=== PATIENT | female | born 1985 | race Caucasian/White ===

== ENCOUNTER → 2019-05-26 | Outpatient (CLI) | payer OTHER ==
[~2019-05-26] MED LIST: ABILIFY PO; ALBIPROI INH; ALBU90OI INH; ALPR.5; ALPR.5 PO; ALPR1; ALPR1 PO; ARIP10 PO; ATOM18 PO; AZIT250 PO; BENZ100A PO; CIPR500 PO; CLON.5; CLON.5 PO; CLON1; CLON1 PO; CLON2 PO; CYCL10 PO; CYMBALTA PO; DESV50 PO; DIPH50 PO; DOXY100 PO; DULO30 PO; ERYT250 PO; ESCI10; ESCI10 PO; ESCI20; ESCI20 PO; FLUO20 PO; GABA100; GABA300 PO; HALO5; HYDACE5 PO; HYDPAM25 PO; IBUP600 PO; KETO10 PO; KLONOPIN; LORA.5 PO; METPHE20 PO; METR500 PO; NAPR500 PO; Norco 5-325 Ta1 EACH PO; OMEP20ER PO; ONDA4 PO; OXYACE5T PO; OXYACE7.5T PO; Omeprazole20 M1 PO; PAIN MED; PARO20 PO; PHENA200 PO; PRAZ1 PO; PRED20 PO; PRISTIQUE; PROM25 PO; PROM25S PR; RXOXYACE PO; RXPROM25 PO; RXTRAM50 PO; SULTRIDS PO; TOPAMAX; TOPI100 PO; TOPI25; TOPI25 PO; TRAM50 PO; TRAZ50 PO; [UNRECOGNIZED DRUG - REMARK]; [UNRECOGNIZED DRUG - REMARK] PO
[2019-05-28 12:07] LABS: HPV 16 Negative (Negative); HPV 18 Negative (Negative); HPV OTHER HR TYPES Negative (Negative)
== END | disposition home or self-care (01) ==
LOC: LAB SHORT 12:04 → LAB SRC 12:04
PROVIDERS: Nurse Practitioner Family
DX: Z12.4 Encounter for screening for malignant neoplasm of cervix (principal)
CPT/HCPCS: 87624; G0123

== ENCOUNTER → 2020-09-13 | Outpatient (CLI) | payer SELFPAY ==
[2020-09-14 10:30] LABS: Candida species (DNA Probe) Negative (NEGATIVE); G. vaginalis (DNA Probe) Negative (NEGATIVE); T. vaginalis (DNA Probe) Negative (NEGATIVE)
[2020-09-16 03:10] LABS: CHLAMYDIA TRACHOMATIS, NAA Negative (Negative)
== END ==
LOC: LAB SHORT 16:32 → LAB 16:32
PROVIDERS: Chiropractor
DX: R10.2 Pelvic and perineal pain (principal)
CPT/HCPCS: 87070; 87205; 87480; 87491; 87510; 87591; 87660

== ENCOUNTER → 2020-10-02 | Outpatient (CLI) | payer SELFPAY ==
[2020-10-03 15:10] LABS: HPV 16 Negative (Negative); HPV 18 Negative (Negative); HPV OTHER HR TYPES Negative (Negative)
== END | disposition home or self-care (01) ==
LOC: LAB 18:11 → LAB SHORT 18:11
PROVIDERS: Family Medicine
DX: Z12.4 Encounter for screening for malignant neoplasm of cervix (principal)
CPT/HCPCS: 87624; G0123

== ENCOUNTER 2021-11-19 09:45 | Emergency (ER) | payer OTHER ==
[~2021-11-19] VITALS: Ht 165.1 cm; Wt 63.5 kg
== END 2021-11-19 10:56 | disposition home or self-care (01) ==
LOC: ER 09:45
DX: S43.81XA Sprain of other specified parts of right shoulder girdle, initial encounter (principal); S83.91XA Sprain of unspecified site of right knee, initial encounter; S63.602A Unspecified sprain of left thumb, initial encounter; W03.XXXA Other fall on same level due to collision with another person, initial encounter; Y93.F9 Activity, other caregiving; F17.200 Nicotine dependence, unspecified, uncomplicated; Z88.0 Allergy status to penicillin; Z88.1 Allergy status to other antibiotic agents; Z88.8 Allergy status to other drugs, medicaments and biological substances; Z79.899 Other long term (current) drug therapy
CPT/HCPCS: 99283

== ENCOUNTER 2023-02-05 11:25 | Emergency (ER) | payer OTHER ==
[~2023-02-05] VITALS: Ht 165.1 cm; Wt 56.7 kg
[2023-02-05] MEDS ORDERED: BUPROPION XL150 M1 PO (11:47)
[2023-02-05] MEDS ORDERED: VENL75ER PO (11:47)
[2023-02-05] MEDS ORDERED: Cetirizine HCl10 MG PO (11:48)
[2023-02-05] MEDS ORDERED: BUSPIRONE HCL10 M6 PO (11:48)
[2023-02-05] MEDS ORDERED: LAMOTRIGINE25 M4 PO (11:48)
[2023-02-05 11:53] LABS: Source, Urine Voided
[2023-02-05 12:12] LABS: Appearance, Urine Clear (Clear); Bilirubin, Urine Neg (Neg); Blood, Urine Neg (Neg); Color, Urine Yellow (P-Yellow); Glucose Qualitative, Urine Neg (Neg); Ketones, Urine Neg (Neg); Leukocyte Esterase, Urine Neg (Neg); Nitrite, Urine Neg (Neg); Protein, Urine Neg (Neg); Urobilinogen, Urine NORM (Normal)
[2023-02-05 12:21] LABS: BASOPHILS ABSOLUTE AUTO 0.06 K/mm3 (0.00-0.23); BASOPHILS PERCENT AUTO 1 % (0-2); EOSINOPHILS ABSOLUTE AUTO 0.12 K/mm3 (0.00-0.68); EOSINOPHILS PERCENT AUTO 2 % (0-6); Hematocrit 41.8 % (33.0-51.0); Hemoglobin 14.2 g/dL (11.5-16.0); IMMATURE GRAN ABSOLUTE AUTO 0.01 K/mm3 (0.00-0.10); IMMATURE GRAN PERCENT AUTO 0 % (0-1); LYMPHOCYTES ABSOLUTE AUTO 1.96 K/mm3 (0.84-5.20); LYMPHOCYTES PERCENT AUTO 32 % (21-46); MONOCYTES ABSOLUTE AUTO 0.41 K/mm3 (0.16-1.47); MONOCYTES PERCENT AUTO 7 % (4-13); Mean Corpuscular Volume 91 fL (80-100); Mean Platelet Volume 9.2 fL (9.1-12.4); NEUTROPHILS ABSOLUTE AUTO 3.63 K/mm3 (1.96-9.15); NEUTROPHILS PERCENT AUTO 59 % (41-73); Platelet Count 345 K/mm3 (150-400); RDW Coefficient Variation 12.4 % (11.7-14.2); RDW Standard Deviation 41.6 fL (35.1-46.3); Red Blood Cell Count 4.58 M/mm3 (3.80-5.20); White Blood Cell Count 6.19 K/mm3 (4.00-11.30)
[2023-02-05 12:42] LABS: Albumin, Blood 3.9 g/dL (3.4-5.0); Bilirubin, Total 0.2 mg/dL (0.1-1.0); Bun/Creatinine Ratio 14.9 (12.0-20.0); Calcium, Blood 8.8 mg/dL (8.5-10.1); Creatinine, Blood 0.74 mg/dL (0.40-1.00); Globulin, Blood 3.8 g/dL (2.2-4.0); Potassium, Blood 4.1 mmol/L (3.5-5.5); Total Protein, Blood 7.7 g/dL (6.4-8.2)
[2023-02-05 14:00] VITALS: BP 101/62
== END 2023-02-05 14:04 | disposition home or self-care (01) ==
LOC: ER 11:25
PROVIDERS: Student in an Organized Health Care Education/Training Program
DX: K80.70 Calculus of gallbladder and bile duct without cholecystitis without obstruction (principal); G40.909 Epilepsy, unspecified, not intractable, without status epilepticus; F17.200 Nicotine dependence, unspecified, uncomplicated; Z88.0 Allergy status to penicillin; Z88.8 Allergy status to other drugs, medicaments and biological substances; Z88.1 Allergy status to other antibiotic agents; Z79.899 Other long term (current) drug therapy
CPT/HCPCS: 76705; 80053; 81003; 81025; 83690; 85025; 96374; 96375; 99284-25; J2405; J3010

== ENCOUNTER 2024-01-25 14:32 | Observation (INO) | payer OTHER ==
[~2024-01-25] VITALS: Ht 165.1 cm; Wt 55.6 kg
[~2024-01-25 14:32] MED LIST changes: -ONDA4ODT MM
[2024-01-25 15:28] LABS: Source, Urine Clean Catch
[2024-01-25 15:32] LABS: Bilirubin, Urine Neg (Neg); Blood, Urine 1+ (Neg); Glucose Qualitative, Urine Neg (Neg); Ketones, Urine Neg (Neg); Leukocyte Esterase, Urine Neg (Neg); Nitrite, Urine Neg (Neg); Protein, Urine Neg (Neg); Specific Gravity, Urine 1.025 (1.003-1.022); Urobilinogen, Urine NORM (Normal)
[2024-01-25 15:38] LABS: Appearance, Urine Clear (Clear); Color, Urine Pale Yellow (P-Yellow)
[2024-01-25 15:39] LABS: Bacteria Few /hpf; Squamous Epithelial Cells Few /hpf (Few); White Blood Cells, Urine 0-2 /hpf (0-5)
[2024-01-25] MEDS ORDERED: Ketorolac Tromethamine 30mg Vial IV ONE (15:45)
[2024-01-25 16:07] LABS: BASOPHILS ABSOLUTE AUTO 0.02 K/mm3 (0.00-0.23); BASOPHILS PERCENT AUTO 0 % (0-2); EOSINOPHILS ABSOLUTE AUTO 0.06 K/mm3 (0.00-0.68); EOSINOPHILS PERCENT AUTO 0 % (0-6); Hematocrit 37.7 % (33.0-51.0); Hemoglobin 12.8 g/dL (11.5-16.0); IMMATURE GRAN ABSOLUTE AUTO 0.05 K/mm3 (0.00-0.10); IMMATURE GRAN PERCENT AUTO 0 % (0-1); LYMPHOCYTES ABSOLUTE AUTO 0.74 K/mm3 (0.84-5.20); LYMPHOCYTES PERCENT AUTO 5 % (21-46); MONOCYTES ABSOLUTE AUTO 0.74 K/mm3 (0.16-1.47); MONOCYTES PERCENT AUTO 5 % (4-13); Mean Corpuscular HGB 31.4 pg (26.0-34.0); Mean Corpuscular Volume 92 fL (80-100); Mean Platelet Volume 9.2 fL (9.1-12.4); NEUTROPHILS ABSOLUTE AUTO 12.51 K/mm3 (1.96-9.15); NEUTROPHILS PERCENT AUTO 89 % (41-73); Platelet Count 244 K/mm3 (150-400); RDW Coefficient Variation 12.5 % (11.7-14.2); RDW Standard Deviation 42.8 fL (35.1-46.3); Red Blood Cell Count 4.08 M/mm3 (3.80-5.20); White Blood Cell Count 14.12 K/mm3 (4.00-11.30)
[2024-01-25] MEDS ORDERED: LevoFLOXacin 750 MG/D5W 150ML 150 ML IV ONE (16:10)
[2024-01-25] MEDS ORDERED: MetroNIDAZOLE 500MG/NS 100 ml 100 ML IV ONE (16:10)
[2024-01-25] MEDS ORDERED: FentaNYL Citrate 50 MCG/ML 2 ML Injection IV PRN (16:20)
[2024-01-25] MEDS ORDERED: Lactated Ringer's 1,000 ML IV SCH (16:20)
[2024-01-25] MEDS ORDERED: Acetaminophen 325 MG TABLET PO PRN (16:20)
[2024-01-25] MEDS ORDERED: Ondansetron HCl 2 MG / ML 2ML Vial IV PRN (16:20)
[2024-01-25 16:28] LABS: Albumin, Blood 3.4 g/dL (3.4-5.0); Albumin/Globulin Ratio 1.2 (0.8-1.8); Bilirubin, Total 0.4 mg/dL (0.1-1.0); Bun/Creatinine Ratio 25.3 (12.0-20.0); Calcium, Blood 7.5 mg/dL (8.5-10.1); Creatinine, Blood 0.59 mg/dL (0.40-1.00); Globulin, Blood 2.8 g/dL (2.2-4.0); Total Protein, Blood 6.2 g/dL (6.4-8.2)
[2024-01-25 17:23] VITALS: BP 97/59
[2024-01-25 18:24] VITALS: BP 91/65
--- NOTE | 2024-01-25 20:03 | NUR ---
SHIFT SUMMARY PT ARRIVED FROM THE ER IN A WC, ABLE TO TRANSFER HERSELF TO HER BED, A/OX4, VSS, TOLERATING CLEARS, PAIN MANAGED PER EMAR. IV IN PLACE AT ARRIVAL WAS REMOVED ADN REPLACED WITH ANOTHER FOR BETTER ACCESS AFTER NUMEROUS DISTAL OCCLUSIONS. NO ACUTE EVENTS THIS SHIFT, CALL LIGHT IN REACH.
[2024-01-25] MEDS ORDERED: Nicotine 14 MG PATCH TOP SCH (21:00)
[2024-01-25] MEDS ORDERED: Ketorolac Tromethamine 15mg Vial IV PRN (22:00)
[2024-01-26] VITALS (18 sets, daily range): BP systolic 94–125; BP diastolic 53–85
[2024-01-26] MEDS ORDERED: MetroNIDAZOLE 500MG/NS 100 ml 100 ML IV SCH
[2024-01-26 05:16] LABS: Albumin, Blood 3.2 g/dL (3.4-5.0); Albumin/Globulin Ratio 1.2 (0.8-1.8); Bilirubin, Total 0.3 mg/dL (0.1-1.0); Bun/Creatinine Ratio 18.5 (12.0-20.0); Calcium, Blood 8.2 mg/dL (8.5-10.1); Creatinine, Blood 0.7 mg/dL (0.40-1.00); Globulin, Blood 2.7 g/dL (2.2-4.0); Potassium, Blood 3.9 mmol/L (3.5-5.5); Total Protein, Blood 5.9 g/dL (6.4-8.2)
--- NOTE | 2024-01-26 08:10 | NUR ---
SHIFT SUMMARY PT IS A&O X4, VSS, RA, RESP UNLABORED, CONT BIOX IN PLACE, NPO SINCE MIDNIGHT FOR PENDING PROCEDURE, NAUSEA & PAIN MANAGED PER EMAR, LR INFUSING @ 75 ML/HR, ABX INFUSED. PT SHOWERED & USED SURG PREP KIT, VOIDING WNL. SIGNIFICANT OTHER AT BEDSIDE, HE ASSISTS W CARE. BEDSIDE REPORT GIVEN, CALL LIGHT IN REACH
[2024-01-26] MEDS ORDERED: LevoFLOXacin 750 MG/D5W 150ML 150 ML IV SCH (09:00)
--- NOTE | 2024-01-26 13:00 | NUR ---
[facility]
[2024-01-26] MEDS ORDERED: Lactated Ringer's 1,000 ML IV SCH ×2 (13:10→15:45)
[2024-01-26] MEDS ORDERED: propofoL 20 ML IV ONE (13:20)
[2024-01-26] MEDS ORDERED: Rocuronium Bromide 10 MG/ML 5ML Injection IV ONE ×2 (13:21→14:48)
[2024-01-26] MEDS ORDERED: FentaNYL Citrate 50 MCG/ML 2 ML Injection ONE ×3 (13:21→16:00)
[2024-01-26] MEDS ORDERED: FentaNYL Citrate 50 MCG/ML 2 ML Injection IV PRN ×2 (13:30→13:35)
[2024-01-26] MEDS ORDERED: Lidocaine HCl 1% 5 ML SYR INJ ONE (13:30)
[2024-01-26] MEDS ORDERED: HYDROmorphone HCl/Pf 1MG SYR IV PRN (13:30)
[2024-01-26] MEDS ORDERED: Midazolam HCl 1MG / ML 2ML Vial IV ONE (13:30)
[2024-01-26] MEDS ORDERED: Metoclopramide HCl 5MG / ML 2ML Vial IV PRN (13:35)
--- NOTE | 2024-01-26 13:41 | NUR ---
IV SITE LFA 20G FLUSHED WITH 10NS/PATENT.
[2024-01-26] MEDS ORDERED: Bupivacaine 0.5% HCl 5 MG/ML 30MLVIAL ONE (13:43)
[2024-01-26] MEDS ORDERED: Phenylephrine HCl 100 MCG/ML-NS 10MLSYR (1MG/10ML) ONE (14:15)
[2024-01-26] MEDS ORDERED: ePHEDrine Sulfate 50 MG/ML 1ML Injection ONE (14:30)
[2024-01-26] MEDS ORDERED: Labetalol HCL 5 MG/ML 4ML Injection (Single Dose) ONE (14:49)
[2024-01-26] MEDS ORDERED: Sugammadex Sodium 200 MG/2ML SDV (100 MG/ML) ONE (14:53)
--- NOTE | 2024-01-26 14:54 | NUR ---
01/26/24 1454 Petty Ham PATIENT ON SCHEDULED ANTIBIOTICS. NO INTRAOPERATIVE ANTIBIOTICS ORDERED
[2024-01-26] MEDS ORDERED: HYDROcodone 5-APAP 325 TAB PO PRN (15:40)
[2024-01-26] MEDS ORDERED: Ketorolac Tromethamine 30mg Vial ONE (16:10)
--- NOTE | 2024-01-26 16:50 | NUR ---
POST OP RETURN VIA ERIKA MATTHEWS TO HOSPITAL BED. ALERT, ORIENTED, & APPROPRIATE. C/O NAUSEA, COOL WASHCLOTH GIVEN. ABD SOFT w/ LAP SITES x 3 w/ STERI-STRIPS; NO DRNG NOTED. C/O BACK PAIN, K-PAD SET UP.
[2024-01-27 03:15] VITALS: BP 103/59
--- NOTE | 2024-01-27 04:20 | NUR ---
SUMMARY- PT C/O NAUSEA AND ONGOING PAIN AT BEGINNING OF SHIFT. PT TX PER SEP WITH SOME RELIEF. PT ENCOURAGED TO WALK. PT WALKED UNIT AND WAS ABLE TO HAVE SOME RELIEF. PT WAS ABLE TO SLEEP AND GET RELIEF FROM PO PAIN MEDS. PT CURRENTLY SLEEPING IN NO DISTRESS. CALL LIGHT IN REACH.
[2024-01-27 07:40] VITALS: BP 108/70
[2024-01-27] MEDS ORDERED: Docusate Sodium 100 MG Cap PO PRN (11:00)
[2024-01-27] MEDS ORDERED: Norco 5-325 Ta1 EACH PO (13:20)
--- NOTE | 2024-01-27 13:35 | NUR ---
DISCHARGE PAIN CONTROLLED. EATING, DRINKING, & VOIDING WELL. MINIMAL FLATUS, BUT AMBULATING. SCRIPT SENT w/ PT. ESCORTED OUT VIA W/C BY SPOUSE.
== END 2024-01-27 13:40 | disposition home or self-care (01) ==
LOC: ER 14:32 → SURS 14:33
PROVIDERS: Physician Assistant; Student in an Organized Health Care Education/Training Program; Surgery; ADMIT Surgery
PROC: 0FT44ZZ Resection of Gallbladder, Percutaneous Endoscopic Approach (ICD-10-PCS; principal; 2024-01-26 14:30)
DX: K80.12 Calculus of gallbladder with acute and chronic cholecystitis without obstruction (principal); F43.10 Post-traumatic stress disorder, unspecified; K21.9 Gastro-esophageal reflux disease without esophagitis; F31.9 Bipolar disorder, unspecified
CPT/HCPCS: 36415; 74300; 80053; 81001; 81025; 83605; 85025; 88304; 94762; 96365; 96366; 96367; 96375; 96376; 99284-25; A9270; C1729; G0378; J1885; J1956; J2250; J2371; J2405; J2704; J3010; J7120

== ENCOUNTER → 2024-01-25 | Outpatient (CLI) | payer OTHER ==
[~2024-01-25] MED LIST changes: +BUPROPION XL150 M1 PO; +BUSPIRONE HCL10 M6 PO; +Cetirizine HCl10 MG PO; +LAMOTRIGINE25 M4 PO; +ONDA4ODT MM; +VENL75ER PO
[2024-01-25 13:07] LABS: BASOPHILS ABSOLUTE AUTO 0.04 K/mm3 (0.00-0.23); BASOPHILS PERCENT AUTO 0 % (0-2); EOSINOPHILS ABSOLUTE AUTO 0.08 K/mm3 (0.00-0.68); EOSINOPHILS PERCENT AUTO 0 % (0-6); Hematocrit 41.4 % (33.0-51.0); Hemoglobin 13.9 g/dL (11.5-16.0); IMMATURE GRAN ABSOLUTE AUTO 0.05 K/mm3 (0.00-0.10); IMMATURE GRAN PERCENT AUTO 0 % (0-1); LYMPHOCYTES ABSOLUTE AUTO 0.57 K/mm3 (0.84-5.20); LYMPHOCYTES PERCENT AUTO 3 % (21-46); MONOCYTES PERCENT AUTO 6 % (4-13); Mean Corpuscular HGB 31.2 pg (26.0-34.0); Mean Corpuscular HGB Conc 33.6 g/dL (31.5-36.5); Mean Corpuscular Volume 93 fL (80-100); Mean Platelet Volume 9.1 fL (9.1-12.4); NEUTROPHILS ABSOLUTE AUTO 16.54 K/mm3 (1.96-9.15); NEUTROPHILS PERCENT AUTO 91 % (41-73); Platelet Count 293 K/mm3 (150-400); RDW Coefficient Variation 12.6 % (11.7-14.2); Red Blood Cell Count 4.46 M/mm3 (3.80-5.20); White Blood Cell Count 18.28 K/mm3 (4.00-11.30)
[2024-01-25 13:19] LABS: Albumin, Blood 4.1 g/dL (3.4-5.0); Albumin/Globulin Ratio 1.1 (0.8-1.8); Bilirubin, Total 0.3 mg/dL (0.1-1.0); Bun/Creatinine Ratio 24.6 (12.0-20.0); Calcium, Blood 8.8 mg/dL (8.5-10.1); Creatinine, Blood 0.69 mg/dL (0.40-1.00); Globulin, Blood 3.6 g/dL (2.2-4.0); Potassium, Blood 4.3 mmol/L (3.5-5.5); Total Protein, Blood 7.7 g/dL (6.4-8.2)
== END | disposition home or self-care (01) ==
LOC: LAB SHORT 13:04 → LAB 13:04
PROVIDERS: Physician Assistant
DX: R11.2 Nausea with vomiting, unspecified (principal)
CPT/HCPCS: 80053; 83690; 85025

== ENCOUNTER 2024-01-29 15:51 | Emergency (ER) | payer OTHER ==
[~2024-01-29] VITALS: Ht 165.1 cm; Wt 52.6 kg
[2024-01-29 16:47] LABS: Hematocrit 38.2 % (33.0-51.0); Hemoglobin 12.8 g/dL (11.5-16.0); Mean Corpuscular HGB 31.1 pg (26.0-34.0); Mean Corpuscular HGB Conc 33.5 g/dL (31.5-36.5); Mean Corpuscular Volume 93 fL (80-100); Mean Platelet Volume 9.7 fL (9.1-12.4); Platelet Count 184 K/mm3 (150-400); RDW Coefficient Variation 12.7 % (11.7-14.2); RDW Standard Deviation 43.5 fL (35.1-46.3); Red Blood Cell Count 4.12 M/mm3 (3.80-5.20); White Blood Cell Count 2.34 K/mm3 (4.00-11.30)
[2024-01-29 17:06] LABS: Albumin, Blood 3.3 g/dL (3.4-5.0); Albumin/Globulin Ratio 1.1 (0.8-1.8); Bilirubin, Total 0.1 mg/dL (0.1-1.0); Bun/Creatinine Ratio 9.8 (12.0-20.0); Calcium, Blood 7.9 mg/dL (8.5-10.1); Creatinine, Blood 0.61 mg/dL (0.40-1.00); Globulin, Blood 3.1 g/dL (2.2-4.0); Potassium, Blood 3.2 mmol/L (3.5-5.5); Total Protein, Blood 6.4 g/dL (6.4-8.2)
[2024-01-29 17:20] LABS: BASOPHILS PERCENT MAN 0 % (0-2); EOSINOPHILS ABSOLUTE MAN 0.04 K/mm3 (0.00-0.68); EOSINOPHILS PERCENT MAN 2 % (0-6); LYMPHOCYTES PERCENT MAN 60 % (21-46); MONOCYTES ABSOLUTE MAN 0.14 K/mm3 (0.16-1.47); MONOCYTES PERCENT MAN 6 % (4-13); NEUTROPHILS ABSOLUTE MAN 0.74 K/mm3 (1.96-9.15); SEG NEUTROPHILS PERCENT MAN 32 % (41-73); TOTAL CELLS COUNTED 100
[2024-01-29] MEDS ORDERED: FentaNYL Citrate 50 MCG/ML 2 ML Injection IV ONE (17:25)
[2024-01-29] MEDS ORDERED: NS 1,000 ML IV SCH (17:25)
[2024-01-29] MEDS ORDERED: Ondansetron HCl 2 MG / ML 2ML Vial IV ONE (17:25)
[2024-01-29] MEDS ORDERED: Potassium Chloride 20 MEQ TabCR PO ONE (17:45)
[2024-01-29 17:57] LABS: Source, Urine Clean Catch
[2024-01-29 18:01] LABS: Appearance, Urine Clear (Clear); Bilirubin, Urine Neg (Neg); Blood, Urine 1+ (Neg); Color, Urine Yellow (P-Yellow); Glucose Qualitative, Urine Neg (Neg); Ketones, Urine Neg (Neg); Leukocyte Esterase, Urine Neg (Neg); Nitrite, Urine Neg (Neg); Protein, Urine 2+ (Neg); Urobilinogen, Urine NORM (Normal)
[2024-01-29 18:10] LABS: Bacteria Few /hpf; Red Blood Cells, Urine 0-2 /hpf (0-2); Squamous Epithelial Cells Few /hpf (Few); White Blood Cells, Urine 0-2 /hpf (0-5)
[2024-01-29] MEDS ORDERED: RX Prepack 2 Tabs Ondansetron ODT 4MG UD ONE (19:55)
[2024-01-29] MEDS ORDERED: ONDA4ODT MM (19:56)
[2024-01-29 20:11] VITALS: BP 103/60
== END 2024-01-29 20:12 | disposition home or self-care (01) ==
LOC: ER 15:51
PROVIDERS: Physician Assistant; Student in an Organized Health Care Education/Training Program
DX: U07.1 COVID-19 (principal); G89.18 Other acute postprocedural pain; E87.6 Hypokalemia; R74.01 Elevation of levels of liver transaminase levels; Z88.8 Allergy status to other drugs, medicaments and biological substances; F43.10 Post-traumatic stress disorder, unspecified; K21.9 Gastro-esophageal reflux disease without esophagitis; F17.200 Nicotine dependence, unspecified, uncomplicated
CPT/HCPCS: 71046; 74177; 80053; 81001; 83690; 83735; 84145; 85025; 96361; 96374-59; 96375; 99284-25; A9270; J2405; J3010; J7030; Q9967

== ENCOUNTER → 2025-02-14 | Outpatient (CLI) | payer OTHER ==
[~2025-02-14] MED LIST changes: +ONDA4ODT MM
[2025-02-16 12:42] LABS: Stool Occult Bld Immuno 1 Negative (NEGATIVE)
== END ==
LOC: LAB SHORT 16:00 → LAB 16:00
PROVIDERS: Internal Medicine
DX: K92.1 Melena (principal)
CPT/HCPCS: 82274

== ENCOUNTER 2025-03-21 11:01 | Day surgery (SDC) | payer OTHER ==
--- NOTE | 2025-03-18 09:14 | NUR ---
UNABLE TO UPDATE PT ON FIRE SAFETY POLICY DUE TO PT NOT ANSWERING THEIR PHONE FOR PRE OP PHONE CALL.
[~2025-03-21] VITALS: Ht 165.1 cm; Wt 60.4 kg
[2025-03-21] VITALS (25 sets, daily range): BP systolic 86–117; BP diastolic 22–93
[~2025-03-21 11:01] MED LIST changes: +PANT40 PO; +VENL37.5ER PO; +VENL75ER
[2025-03-21] MEDS ORDERED: Midazolam HCl 1MG / ML 2ML Vial ONE (12:55)
--- NOTE | 2025-03-21 13:00 | NUR ---
Ambulatory in Day Surgery Patient confirms NPO status and agrees with scheduled surgery. Pre-Op teaching done. Pt verbalizes understanding. History, Chart, Medications and Allergies reviewed before start of procedure.Patient States Post-Procedure ride home has been arranged.PT REPORTS BEING CLEAR DESPITE DRINKING ALL OF THE PREP
--- NOTE | 2025-03-21 13:37 | NUR ---
03/21/25 3047 Waldemar Ferreira CONFIRMED AND REVIEWED H&P, MEDCICATIONS, ALLERGIES, MEDICAL HISTORY, RESPIRATORY HISTORY, VITAL SIGNS, 3-LEAD EKG, CONSENTS, AND PHYSICIAN ORDERS. PATIENT CONFIRMS NPO STATUS AND AGREES WITH SCHEDULED PROCEDURE. MONITOR INTACT WITH CONTINUOUS PULSE OXIMETRY, CAPNOGRAPHY, 3-LEAD EKG, INTERMITTENT BP. SUPPLEMENTAL O2 TO BE TITRATED THROUGHOUT PROCEDURE TO MAINTAIN O2 SATURATION ABOVE 90%. PATIENT DETERMINED TO BE ASA APPROPRIATE FOR PROPOFOL SEDATION PRIOR TO START OF PROCEDURE BY DR. VILLAFANA. Bite Block Placed.
--- NOTE | 2025-03-21 14:17 | NUR ---
Patient up to Ambulate independently. Gait steady. Discharge instructions reviewed with patient. Patient verbalizes understanding. Copy given to patient to take home. Discharged via wheelchair to private car for ride home WITH BOYFRIEND
== END 2025-03-21 14:20 | disposition home or self-care (01) ==
LOC: ORSCMMR 11:01 → ORD 12:30 → ORSCMMR 14:20
PROVIDERS: Family Medicine
PROC: 0DB68ZX Excision of Stomach, Via Natural or Artificial Opening Endoscopic, Diagnostic (ICD-10-PCS; principal; 2025-03-21 12:30)
PROC: 0DB48ZX Excision of Esophagogastric Junction, Via Natural or Artificial Opening Endoscopic, Diagnostic (ICD-10-PCS; principal; 2025-03-21 12:30)
PROC: 0DJD8ZZ Inspection of Lower Intestinal Tract, Via Natural or Artificial Opening Endoscopic (ICD-10-PCS; 2025-03-21 12:30)
DX: K92.1 Melena (principal); R10.9 Unspecified abdominal pain; K29.70 Gastritis, unspecified, without bleeding; K44.9 Diaphragmatic hernia without obstruction or gangrene; F31.9 Bipolar disorder, unspecified; F41.8 Other specified anxiety disorders; K64.4 Residual hemorrhoidal skin tags; F17.210 Nicotine dependence, cigarettes, uncomplicated; Z79.899 Other long term (current) drug therapy
CPT/HCPCS: 88305; 88342; J2250; J2704; J7120